=== PATIENT | male | born 1950 | race Caucasian/White ===

== ENCOUNTER → 2020-08-18 | Outpatient (CLI) | payer MEDICARE, MEDICAID ==
--- NOTE | 2020-08-20 15:48 | SLEEPHOME ---
DATE: 08/18/2020 ORDERED BY: Deandra Fletcher Diagnostic home sleep testing was performed due to concern for the obstructive sleep apnea syndrome in this patient with a history of significant snoring. For testing, a nocturnal T3 respiratory monitoring device was used. Continuous record was made of pulse, oxygen saturation, air flow, chest and abdominal strain, and body position. Nine hours and 59 minutes of data were reviewed. There were 9 hours and 10 minutes marked as time in bed. During the interval marked time in bed, there were 335 respiratory events identified of 10 seconds in duration or greater for a respiratory event index of 36.5. The events were mixed in character, 180 mixed and central apneas were seen. Baseline pulse rate was 60 beats per minute. Pulse rate ranged 32 to 70. Baseline saturation was 93%. Saturations fell to 76%. Testing was performed in both the supine and nonsupine positions. IMPRESSION: Abnormal home sleep testing with repetitive respiratory events and oxygen desaturations to 76% is consistent with the obstructive sleep apnea syndrome. Given the occurrence of central apneas, a complex sleep apnea may be present. RECOMMENDATION: The patient should be strongly encouraged to agree to a referral for a formal sleep evaluation and in-laboratory pressure titration. Given the occurrence of central apneas, complex titration may be necessary.
== END ==
LOC: M SLEEP HO 10:40
PROVIDERS: ATTEND Physician Assistant
DX: R06.83 Snoring (principal)

== ENCOUNTER 2020-11-23 11:59 | Observation (INO) | payer MEDICARE, MEDICAID ==
[2020-11-23 15:55] VITALS: BP 103/76
[2020-11-23] MEDS ORDERED: XARE20TA PO (17:20)
[2020-11-23] MEDS ORDERED: ROSU10TA6 PO (17:20)
[2020-11-23] MEDS ORDERED: DIGO0.123 PO (17:20)
[2020-11-23] MEDS ORDERED: TORS10TA3 PO (17:20)
[2020-11-23] MEDS ORDERED: METO1TAB32 PO (17:20)
[2020-11-23] MEDS ORDERED: ENTR1TAB PO (17:20)
[2020-11-23] MEDS ORDERED: ADV250INH PO (17:20)
[2020-11-23] MEDS ORDERED: BUME1TAB3 PO (17:20)
[2020-11-23] MEDS ORDERED: CLOP75TA2 PO (17:20)
[2020-11-23] MEDS ORDERED: VITA200016 PO (17:20)
[2020-11-23] MEDS ORDERED: PANT40TA29 PO (17:20)
[2020-11-23] MEDS ORDERED: MAGN400T35 PO (17:20)
[2020-11-23] MEDS ORDERED: ASPI81TA26 PO (17:20)
[2020-11-23] MEDS ORDERED: POTA1TAB23 PO (17:20)
[2020-11-23] MEDS ORDERED: RIVAROXABAN 20 MG TAB (XARELTO) PO SCH (18:00)
[2020-11-23] MEDS ORDERED: COMMENTS (18:07)
--- NOTE | 2020-11-23 18:22 | HPEPDOC ---
General Date of Admission Nov 23, 2020 at 15:55 Date of Service: Nov 23, 2020 Chief Complaint The patient is a 69-year-old male admitted with a reason for visit of Syncope. 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 He felt everything was becoming white in front of his eyes and he was feeling nauseous and felt like he was going to pass out but was able to quickly sit down and did not actually pass out. His was having some increased low back pain yesterday before he started junking and during the second episode he also felt severe pain in his low back and his neck between the shoulders. His back was very stiff and even after sitting he could could not relax his back could not straighten it out. he continued to feel nauseous and light headed so went to [facility]. He was there under observation overnight and was transferred here this afternoon for evaluation of Presyncope/ syncope and to have his pacemaker checked out. At present he feels well. He has mild low back pain 3/10, dull aching in nature with no radiation. he denies any dizziness or light headedness. Significant Labs from [place]: Creatinine 1.88, 1.7 Home Medications Scheduled Aspirin (Aspirin EC) 81 Mg Tablet.dr, 81 MG PO DAILY, (Reported) Cholecalciferol (Vitamin D3) (Vitamin D3) 50 Mcg Capsule, 50 MCG PO DAILY, (Reported) Clopidogrel Bisulfate (Clopidogrel) 75 Mg Tablet, 75 MG PO DAILY, (Reported) Digoxin (Digoxin) 125 Mcg Tablet, 125 MCG PO DAILY, (Reported) Magnesium Oxide (Magnesium Oxide) 400 Mg Tablet, 400 MG PO TID, (Reported) Metoprolol Succinate (Metoprolol Succinate) 25 Mg Tab.er.24h, 25 MG PO DAILY, (Reported) Pantoprazole Sodium (Pantoprazole Sodium) 40 Mg Tablet.dr, 40 MG PO DAILY, (Reported) Potassium Chloride (Potassium Chloride) 10 Meq Tablet.er, 10 MEQ PO BID, (Reported) Rivaroxaban (Xarelto) 20 Mg Tablet, 20 MG PO QPM, (Reported) Rosuvastatin Calcium (Rosuvastatin Calcium) 10 Mg Tablet, 10 MG PO QHS, (Reported) Sacubitril/Valsartan (Entresto 24 mg-26 mg Tablet) 1 Each Tablet, 1 TAB PO BID, (Reported) Salmeterol/Fluticasone (Advair 250-50 Diskus) 1 Each Blst.w.dev, 2 PUFF PO BID, (Reported) Torsemide (Torsemide) 10 Mg Tablet, 20 MG PO BID, (Reported) Miscellaneous Medications [Comments] , (Reported) MED LIST MADE WITH EXTERNAL MED HISTORY. LAST KNOWN DOSES ARE FROM [facility] Allergies Coded Allergies: No Known Allergies (Unverified , 11/23/20) Past Medical History Medical History CAD s/p stents s/p CABG in 2010 Ischemic cardiomyopathy AICD Systolic CHF KYLAH PAD subclavian thrombosis s/p stents. Poor left brachial and radial pulses Chronic back pain and neck pain GERD HTN RLS Surgical History CABG AICD Left leg screws. Family History Significant Family History: Cancer (maternal grandmother lung ca, maternal aunt unknown cancer) Social History * Smoker: former Smoker Alcohol: rarely Drugs: denies A-FIB/CHADSVASC A-FIB History Current/History of A-Fib/PAF?: No Review of Systems Constitutional: Denies: Chills, Fever, Night Sweats Eyes: Denies: Pain, Vision change ENT: Denies: Head Aches, Ear Pain, Dysphagia Skin: Denies: Rash, Lesions, Breakdown Pulmonary: Denies: Dyspnea, Cough Cardiovascular: Reports: Lt Headedness, Other Symptoms (almost passing out); Denies: Chest Pain, Palpitations, Orthopnea, Paroxysmal Noc. Dyspnea Gastrointestinal: Denies: Nausea, Vomiting, Abdominal Pain, Diarrhea Genitourinary: Denies: Dysuria, Frequency, Incontinence, Retention Musculoskeletal: Reports: Neck Pain, Back Pain Neurological: Denies: Weakness, Numbness, Change in speech, Confusion Physical Examination General Exam: Positive: Alert, Cooperative, No Acute Distress Eye Exam: Positive: PERRLA, Conjunctiva & lids normal, EOMI; Negative: Sclera icteric ENT Exam: Positive: Atraumatic, Mucous membr. moist/pink, Pharynx Normal Neck Exam: Positive: Supple; Negative: JVD, thyromegaly Chest Exam: Positive: Clear to auscultation, Normal air movement Heart Exam: Positive: Rate Normal, Regular Rhythm, Normal S1, Normal S2; Negative: Murmurs, Rubs Telemetry: Positive: Other Telemetry: (all paced complex) Abdomen Exam: Positive: Normal bowel sounds, Soft, Other (obese); Negative: Tenderness Extremity Exam: Negative: Clubbing, Cyanosis, Edema Skin Exam: Positive: Nl turgor and temperature; Negative: Breakdown, Lesion Neuro Exam: Positive: Normal Speech, Strength at 5/5 X4 ext, Normal Tone Psych Exam: Positive: Memory Intact, Oriented x 3 Vital Signs Vital Signs Date Time Temp Pulse Resp B/P (MAP) Pulse Ox O2 Delivery O2 Flow Rate FiO2 11/23/20 15:55 97.6 61 18 103/76 (85) 98 Room Air Assessment/Plan 69 year old male with multiple medical problems was "junking" with his friends yesterday when he had 2 brief presyncopal episodes when he was 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 He felt everything was becoming white in front of his eyes and he was feeling nauseous and felt like he was going to pass out but was able to quickly sit down and did not actually pass out. His was having some increased low back pain yesterday before he started junking and during the second episode he also felt severe pain in his low back and his neck between the shoulders. His back was very stiff and even after sitting he could could not relax his back could not straighten it out. he continued to feel nauseous and light headed so went to [facility]. He was there under observation overnight and was transferred here this afternoon for evaluation of Presyncope/ syncope and to [facility] his pacemaker checked out. Presyncopal episodes likely vasovagal vs orthostatic rule out cardiac arrhythmias placed on telemetry will get orthostatic vitals carotid US, echo. will hold diuretics. Seems to be on both bumax and torsemide will get records from Dr Bosch office to clarify. MIGUEL vs CKD i do not have any baseline recent labs here. his creatinine was 1.8, 1.7 in outside hospital likely MIGUEL from overdiuresis. he is on multiple diuretics and fluid restriction and he reports that he was very thirty the night before. will hold all diuretics. CAD/ Ischemic cardiomyopathy/ AICD continue asa, plavix, amiodarone, xarelto Cardiac arrhythmia likely A fib will continue metoprolol, digoxin and xarelto check dig level CHF likely systolic and diastolic, Has AICD in place Euvolemic to hypovolemic will hold entresto for now. HTN bp low normal will hold meds HLD statin PAD thrombus in subclaviun arteries with stents in place asa, plavix, xarelto. COPD advair. GERD PPI Hypomagnesemia magnesium Plan / VTE VTE Prophylaxis Ordered?: Yes JERO CABEZAS MD Nov 23, 2020 18:22
[2020-11-23 18:46] VITALS: BP_SYST 108; BP_SYST 127; BP_SYST 132; BP_DIAS 75; BP_DIAS 77
[2020-11-23] MEDS: ADVAIR HFA 230/21MCG INHALER INH SCH (20:00)
[2020-11-23] MEDS ORDERED: ROSUVASTATIN 10 MG TAB (CRESTOR) PO SCH (21:00)
[2020-11-23] MEDS: MAGNESIUM OXIDE 400MG TAB (MAG-OX) PO SCH (21:48)
[2020-11-23 22:00] VITALS: BP 128/76
[2020-11-24 06:00] VITALS: BP 127/75
[2020-11-24 06:01] LABS: BASO # 0.1 10^3/uL (0.0-0.2); BASO % 0.7 % (0.0-1.0); EOS # 0.2 10^3/uL (0.0-0.5); EOS % 2.4 % (0.0-3.0); HEMATOCRIT 39.9 % (42.0-52.0); HEMOGLOBIN 12.6 g/dl (13.5-17.5); LYMPH # 1.3 10^3/uL (1.5-5.0); LYMPH % 15.9 % (24.0-44.0); MEAN CORPUSCULAR HEMOGLOBIN 29.3 pg (27.0-33.0); MEAN CORPUSCULAR HGB CONC 31.6 g/dl (32.0-36.5); MEAN CORPUSCULAR VOLUME 92.8 fl (80.0-96.0); MONO # 0.7 10^3/uL (0.0-0.8); MONO % 9.2 % (2.0-8.0); NEUTROPHILS # 5.7 10^3/uL (1.5-8.5); NEUTROPHILS % 71.4 % (36.0-66.0); PLATELET COUNT, AUTOMATED 240 10^3/uL (150-450)
[2020-11-24 06:14] VITALS: BP_SYST 122; BP_SYST 124; BP_SYST 127; BP_DIAS 73; BP_DIAS 74; BP_DIAS 75
[2020-11-24 06:39] LABS: CALCIUM LEVEL 8.6 MG/DL (8.8-10.2); CREATININE FOR GFR 1.45 MG/DL (0.70-1.30); GLOMERULAR FILTRATION RATE 51.7 (>49); POTASSIUM SERUM 4.1 MEQ/L (3.5-5.1)
[2020-11-24] MEDS: ADVAIR HFA 230/21MCG INHALER INH SCH (07:18)
[2020-11-24] MEDS ORDERED: METOPROLOL SUCC *XL* 25MG TAB (TopROL *XL*) PO SCH (09:00)
[2020-11-24] MEDS ORDERED: PANTOPRAZOLE 40MG TAB (PROTONIX) PO SCH (09:00)
[2020-11-24] MEDS ORDERED: CLOPIDOGREL 75 MG TAB PO SCH (09:00)
[2020-11-24] MEDS ORDERED: ASPIRIN 81MG ENTERIC TABLET PO SCH (09:00)
[2020-11-24] MEDS ORDERED: DIGOXIN 0.125 MG TAB PO SCH (09:00)
[2020-11-24 09:36] VITALS: BP 122/75
[2020-11-24] MEDS: MAGNESIUM OXIDE 400MG TAB (MAG-OX) PO SCH (09:38)
[2020-11-24 14:00] VITALS: BP 126/74
[2020-11-24 14:09] LABS: DIGOXIN LEVEL 1.2 NG/ML (0.5-2.0)
--- NOTE | 2020-11-24 19:39 | IPNPDOC ---
Subjective Date Seen The patient was seen on 11/24/20. Subjective Chief Complaint/HPI He had a little nausea this morning with 1 episode of loose bowel movement. No other complaints. No weakness of dizziness. No light headedness. Patient will be discharged home today. Objective Physical Examination General Exam: Positive: Alert, Cooperative, No Acute Distress Eye Exam: Positive: PERRLA, Conjunctiva & lids normal, EOMI; Negative: Sclera icteric ENT Exam: Positive: Atraumatic, Mucous membr. moist/pink, Pharynx Normal Neck Exam: Positive: Supple; Negative: JVD, thyromegaly Chest Exam: Positive: Clear to auscultation, Normal air movement Heart Exam: Positive: Rate Normal, Regular Rhythm, Normal S1, Normal S2; Negative: Murmurs, Rubs Telemetry: Positive: Other Telemetry: (all paced complex) Abdomen Exam: Positive: Normal bowel sounds, Soft, Other (obese); Negative: Tenderness Extremity Exam: Negative: Clubbing, Cyanosis, Edema Skin Exam: Positive: Nl turgor and temperature; Negative: Breakdown, Lesion Neuro Exam: Positive: Normal Speech, Strength at 5/5 X4 ext, Normal Tone Psych Exam: Positive: Memory Intact, Oriented x 3 Assessment /Plan Assessment 69 year old male with multiple medical problems was "junking" with his friends yesterday when he had 2 brief presyncopal episodes when 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 He felt everything was becoming white in front of his eyes and he was feeling nauseous and felt like he was going to pass out but was able to quickly sit down and did not actually pass out. His was having some increased low back pain yesterday before he started junking and during the second episode he also felt severe pain in his low back and his neck between the shoulders. His back was very stiff and even after sitting he could could not relax his back could not straighten it out. he continued to feel nauseous and light headed so went to [facility]. He was there under observation overnight and was transferred here this afternoon for evaluation of Presyncope/ syncope and to have his pacemaker checked out. Presyncopal episodes likely vasovagal due to over diuresis with intravascular volume depletion. Orthostatic vitals were negative no events noted on telemetry. Seems he was taking both bumax and torsemide which probably made him mildly hypovolemic and while he was bending forward again and again he likely had a vasovagal episode Will get echo as outpatient follow up with PMD and with cardiology. MIGUEL vs CKD I do not have any baseline recent labs here. his creatinine was 1.8, 1.7 in outside hospital here mproved to 1.46 after holding diuretics, likely MIGUEL from overdiuresis. he is on multiple diuretics and fluid restriction Patient does admit that he cannot maintain fluid restriction as he get very thirsty and then gets bloated. CAD/ Ischemic cardiomyopathy/ AICD continue asa, plavix, amiodarone, xarelto Cardiac arrhythmia likely A fib will continue metoprolol, digoxin and xarelto dig level ok. CHF systolic and diastolic, Has AICD in place Euvolemic at present will restarted entresto and only torsemide. HTN normal range will restart home meds. HLD statin PAD thrombus in subclaviun arteries with stents in place asa, plavix, xarelto. poor pulse in the left brachial and radial artery. COPD advair. GERD PPI Hypomagnesemia magnesium Dispo: Home Discharge instructions Follow up with PMD in 1 weeks Follow up with Dr Bosch in 2 to 3 weeks. Plan/VTE VTE Prophylaxis Ordered?: Yes VS, I&O, 24H, Fishbone Vital Signs/I&O Vital Signs Date Time Temp Pulse Resp B/P (MAP) Pulse Ox O2 Delivery O2 Flow Rate FiO2 11/24/20 09:36 62 122/75 11/24/20 06:00 98.1 18 96 Room Air I&O- Last 24 Hours up to 6 AM 11/24/20 05:59 Intake Total 840 ml Output Total 550 ml Balance 290 ml Laboratory Data 24H LABS Laboratory Tests 2 11/24/20 05:50: Immature Granulocyte % (Auto) 0.4, Neutrophils (%) (Auto) 71.4H, Lymphocytes (%) (Auto) 15.9L, Monocytes (%) (Auto) 9.2H, Eosinophils (%) (Auto) 2.4, Basophils (%) (Auto) 0.7, Neutrophils # (Auto) 5.7, Lymphocytes # (Auto) 1.3L, Monocytes # (Auto) 0.7, Eosinophils # (Auto) 0.2, Basophils # (Auto) 0.1, Nucleated Red Blood Cells % (auto) 0.0, Anion Gap 6L, Glomerular Filtration Rate 51.7, Calcium Level 8.6L CBC/BMP Laboratory Tests 11/24/20 05:50 JERO CABEZAS MD Nov 24, 2020 12:52
== END 2020-11-24 15:42 | disposition home or self-care (01) ==
LOC: M MSPAV 15:55 → INTOOBSV 15:55
PROVIDERS: ADMIT Internal Medicine; ATTEND Internal Medicine Nephrology
DX: R55 Syncope and collapse (principal); R11.0 Nausea; N17.9 Acute kidney failure, unspecified; I25.10 Atherosclerotic heart disease of native coronary artery without angina pectoris; I25.5 Ischemic cardiomyopathy; Z95.0 Presence of cardiac pacemaker; Z95.1 Presence of aortocoronary bypass graft; I11.9 Hypertensive heart disease without heart failure; E78.49 Other hyperlipidemia; J44.9 Chronic obstructive pulmonary disease, unspecified; E83.42 Hypomagnesemia; I49.9 Cardiac arrhythmia, unspecified; Z87.891 Personal history of nicotine dependence; I50.20 Unspecified systolic (congestive) heart failure; Z79.82 Long term (current) use of aspirin; Z79.01 Long term (current) use of anticoagulants; Z79.899 Other long term (current) drug therapy
CPT/HCPCS: 36415; 80048; 80162; 85025; 94640; G0378